=== PATIENT | male | born 1950 | race Caucasian/White ===

== ENCOUNTER 2017-12-13 11:00 | Inpatient (IN) | payer MEDICAID, MEDICARE ==
--- NOTE | 2017-12-13 11:12 | ED Physician Chart ---
ED Chief Complaint/HPI - Patient Information Date Seen:: 12/13/17 Time Seen:: 11:00 Chief Complaint:: AMS History of Present Illness:: onset x 2 days of AMS, ALOC, confusion, weakness, and dysphasia; no report of LOC, H/As, neck pain, C/P, SOB, Abd. Pain, A/N/V/D/c, fever, chills, or urinary s/s Historian:: Patient, Family Member Review:: Nurse's Note Reviewed ED Review of Systems - Review of Systems General/Constitutional: No fever, No chills, No weight loss, No weakness, No diaphoresis, No edema, No loss of appetite Skin: No skin lesions, No rash, No bruising Head: No headache, No light-headedness Eyes: No loss of vision, No pain, No diplopia ENT: No earache, No nasal drainage, No sore throat, No tinnitus Neck: No neck pain, No swelling, No thyromegaly, No stiffness, No mass noted Cardio Vascular: No chest pain, No palpitations, No PND, No orthopnea, No edema Pulmonary: No SOB, No cough, No sputum, No wheezing GI: No nausea, No vomiting, No diarrhea, No pain, No melena, No hematochezia, No constipation, No hematemesis G/U: No dysuria, No frequency, No hematuria, No nacturia Musculoskeletal: No bone or joint pain, No back pain, No muscle pain Endocrine: No polyuria, No polydipsia Psychiatric: No prior psych history, No depression, No anxiety, No suicidal ideation, No homicidal ideation, No auditory hallucination, No visual hallucination Hematopoietic: No bruising, No lymphadenopathy Allergic/Immuno: No urticaria, No angioedema Neurological: No syncope, Focal symptoms, Weakness, No paresthesia, No headache , No seizure, No dizziness, Confusion, No vertigo ED Past Medical History - Past Medical History Obtainable: Yes Past Medical History: HTN, DM, CVA/TIA, Dyslipidemia Family History: Diabetes Melitus, HTN Social History: Non Smoker, No Alcohol, No Drug Use, Surgical History: None Psychiatricy History: None Medication: Reviewed ED Physical Exam - Physical Examination General/Constitutional: Awake, Well-developed, well-nourished, Alert, No distress, GCS 15, Non-toxic appearing, Ambulatory Head: Atraumatic Eyes: Lids, conjuctiva normal, PERRL, EOMI Skin: Nl inspection, No rash, No skin lesions, No ecchymosis, Well hydrated, No lymphadenopathy ENMT: External ears, nose nl, TM canals nl, Nasal exam nl, Lips, teeth, gums nl , Oropharynx nl, Tonsils nl Neck: Nontender, Full ROM w/o pain, No JVD, No nuchal rigidity, No bruit, No mass, No stridor Respiratory: Nl effort/Exclusion, Clear to Auscultation, No Wheeze/Rhonchi/Rales Cardio Vascular: RRR, No murmur, gallop, rubs, NL S1 S2, Carotid/Femoral/Distal pulses equal bilaterally GI: No tenderness/rebounding/guarding, No organomegaly, No hernia, Normal BS's, Nondistended, No mass/bruits, No McBurney tenderness : No CVA tenderness Extremities: No tenderness or effusion, Full ROM, normal strength in all extremities, No edema, Normal digits & nails Neuro/Psych: Alert/oriented, DTR's symmetric, Normal sensory exam, Normal motor strength, Judgement/insight normal, Mood normal, Normal gait Other Neuro/Psych comments:: + Dysphasia; decreased motor and sensory functions of Right Facial, RUE, and RLE due to old CVA Misc: Normal back, No paraspinal tenderness ED Labs/Radiology/EKG Results - Lab Results Comments:: Na+: 133; K+: 3.2 - Radiology Results Comments:: NAD - EKG Interpretations EKG Time:: 11:47 Rate & Rhythm: 102; ST Comments:: non-specific st-t changes ED Septic Shock - . Is Septic Shock (SBP<90, OR Lactate>4 mmol\L) present?: No ED Reassessment (Disposition) - Reassessment Reassessment Condition:: Improved - Diagnosis Diagnosis:: Hyponatremia; Hypokalemia; AMS; ALOC; TIA; CVA - Aftercare/Follow up Instructions Aftercare/Follow-Up Instructions:: Counseled pt regarding lab results/diagnosis & need follow up, Refer to Discharge Instructions, Counseled pt & family regarding lab results/diagnosis & need follow up - Patient Disposition Discharge/Transfer:: Acute Care w/in this hosp Accepting Physician:: Dr. Charlie Time Called:: 1300 Time Responded:: 13:00 Admitted to:: Telemetry Spoke to:: Dr. Guerra Admitting Medical Physician:: Dr. Guerra Condition at Disposition:: Stable, Improved
[2017-12-13 11:23] LABS: % BASOPHILS 0.9 % (0.0-2.0); % EOSINOPHILS 0.9 % (0.0-5.0); % LYMPHOCYTES 32.6 % (20.0-50.0); % MONOCYTES 11.9 % (2.0-10.0); % NEUTROPHILS 53.7 % (40.0-80.0); BASOPHILE ABSOLUTE 0.1 Th/cumm (0-0.2); EOSINOPHILE ABSOLUTE 0.1 Th/cmm (0.1-0.4); HEMATOCRIT 47.9 % (41.0-60); LYMPHOCYTE ABSOLUTE 2.7 Th/cmm (1.5-3.0); MEAN CELL VOLUME 95.1 fl (80-99); MEAN CORPUSCULAR HEMOGLOBIN 31.8 pg (27.0-31.0); MEAN CORPUSCULAR HGB CONC 33.4 pg (28.0-36.0); MEAN PLATELET VOLUME 7.8 fl; NEUTROPHILE ABSOLUTE 4.4 Th/cmm (1.8-8.0); PLATELET COUNT 344 Th/cmm (150-400); RED BLOOD COUNT 5.04 Mil/cmm (3.80-5.80); RED CELL DISTRIBUTION WIDTH 12.6 % (11.5-20.0); WHITE BLOOD COUNT 8.3 Th/cmm (4.8-10.8)
[2017-12-13 11:36] LABS: PROTHROMBIN TIME (TEST) 10.4 SECONDS (9.5-11.5)
[2017-12-13 11:43] LABS: ALBUMIN 3.9 gm/dL (4.2-5.5); ALKALINE PHOSPHATASE 82 U/L (34-104); ANION GAP 8.5 (7.0-16.0); BILIRUBIN,TOTAL 0.6 mg/dL (0.3-1.0); BUN - UREA NITROGEN 8 mg/dL (7-25); CALCIUM SERUM 9.3 mg/dL (8.6-10.3); CARBON DIOXIDE 27.7 mEq/L (21.0-31.0); CHLORIDE 100 mEq/L (98-107); CHOLESTEROL 150 mg/dL (<200); CREATININE - SERUM 0.7 mg/dL (0.7-1.3); CREATININE KINASE 78 U/L (30-223); GFR AFRICAN-AMERICAN > 60.0 ml/min (>90); GFR NON AFRICAN-AMERICAN > 60.0 ml/min; GLUCOSE 215 mg/dL (70-105); HDL -HIGH DENSITY LIPOPROTEIN 44 mg/dL (23-92); POTASSIUM SERUM 3.2 mEq/L (3.5-5.1); SGOT 11 U/L (13-39); SGPT/ALT 11 U/L (7-52); SODIUM SERUM 133 mEq/L (136-145); TOTAL PROTEIN,SERUM 7.9 gm/dL (6.0-8.3); TRIGLYCERIDES 70 mg/dL (<150)
[2017-12-13] MEDS ORDERED: Potassium Chloride 20 mEq ER Tab PO ONE ×2 (12:26→12:34)
--- NOTE | 2017-12-13 13:25 | Diagnostic Imaging Report ---
Head CT without intravenous contrast Indication: Confusion Comparison: None Technique: Axial images were obtained from the vertex to the skull base without IV contrast. Coronal reconstructions were made. Total DLP: [id number], [id number] FINDINGS: Images of the brain obtained without contrast demonstrate no evidence of acute hemorrhage. Old left MCA territory infarct is seen with encephalomalacia left frontal and temporal lobes. There is mild ex vacuo dilatation left lateral ventricle. The basal cisterns are patent. No mass effect or midline shift. Atrophy is noted. No evidence of a skull fracture or focal soft tissue swelling. Atherosclerosis is noted. The visualized paranasal sinuses demonstrate mucosal thickening. IMPRESSION: No evidence of acute intracranial hemorrhage. 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 Atherosclerotic vascular disease.
--- NOTE | 2017-12-13 13:48 | Diagnostic Imaging Report ---
Portable chest x-ray History: Pain Allowing for portable technique the heart size is normal. No focal pulmonary parenchymal processes. No hilar or mediastinal abnormalities. Surgical clips noted in the left upper quadrant of the abdomen. Impression: No acute abnormalities.
[2017-12-14 06:59] LABS: % BASOPHILS 0.8 % (0.0-2.0); % EOSINOPHILS 1.6 % (0.0-5.0); % LYMPHOCYTES 27.5 % (20.0-50.0); % MONOCYTES 14.6 % (2.0-10.0); % NEUTROPHILS 55.5 % (40.0-80.0); BASOPHILE ABSOLUTE 0.1 Th/cumm (0-0.2); EOSINOPHILE ABSOLUTE 0.1 Th/cmm (0.1-0.4); HEMATOCRIT 44.6 % (41.0-60); HEMOGLOBIN 14.9 gm/dL (12-16); LYMPHOCYTE ABSOLUTE 2.1 Th/cmm (1.5-3.0); MEAN CELL VOLUME 93.5 fl (80-99); MEAN CORPUSCULAR HEMOGLOBIN 31.3 pg (27.0-31.0); MEAN CORPUSCULAR HGB CONC 33.4 pg (28.0-36.0); MEAN PLATELET VOLUME 8.4 fl; MONOCYTE ABSOLUTE 1.1 Th/cmm (0.3-1.0); NEUTROPHILE ABSOLUTE 4.4 Th/cmm (1.8-8.0); PLATELET COUNT 350 Th/cmm (150-400); RED BLOOD COUNT 4.77 Mil/cmm (3.80-5.80); RED CELL DISTRIBUTION WIDTH 12.8 % (11.5-20.0); WHITE BLOOD COUNT 7.8 Th/cmm (4.8-10.8)
[2017-12-14 07:11] LABS: ANION GAP 7.3 (7.0-16.0); BUN - UREA NITROGEN 8 mg/dL (7-25); CALCIUM SERUM 9.3 mg/dL (8.6-10.3); CARBON DIOXIDE 28.5 mEq/L (21.0-31.0); CHLORIDE 103 mEq/L (98-107); CREATININE - SERUM 0.7 mg/dL (0.7-1.3); GFR AFRICAN-AMERICAN > 60.0 ml/min (>90); GFR NON AFRICAN-AMERICAN > 60.0 ml/min; GLUCOSE 186 mg/dL (70-105); POTASSIUM SERUM 3.8 mEq/L (3.5-5.1); SODIUM SERUM 135 mEq/L (136-145)
[2017-12-15 06:01] LABS: % BASOPHILS 0.5 % (0.0-2.0); % EOSINOPHILS 2.2 % (0.0-5.0); % LYMPHOCYTES 37.8 % (20.0-50.0); % NEUTROPHILS 46.5 % (40.0-80.0); EOSINOPHILE ABSOLUTE 0.2 Th/cmm (0.1-0.4); HEMATOCRIT 46.5 % (41.0-60); HEMOGLOBIN 15.6 gm/dL (12-16); MEAN CELL VOLUME 93.2 fl (80-99); MEAN CORPUSCULAR HEMOGLOBIN 31.1 pg (27.0-31.0); MEAN CORPUSCULAR HGB CONC 33.4 pg (28.0-36.0); MEAN PLATELET VOLUME 7.9 fl; NEUTROPHILE ABSOLUTE 3.7 Th/cmm (1.8-8.0); PLATELET COUNT 311 Th/cmm (150-400); RED CELL DISTRIBUTION WIDTH 12.6 % (11.5-20.0); WHITE BLOOD COUNT 7.9 Th/cmm (4.8-10.8)
[2017-12-15 06:22] LABS: BUN - UREA NITROGEN 12 mg/dL (7-25); CALCIUM SERUM 9.5 mg/dL (8.6-10.3); CARBON DIOXIDE 28.1 mEq/L (21.0-31.0); CHLORIDE 100 mEq/L (98-107); CREATININE - SERUM 0.8 mg/dL (0.7-1.3); GFR AFRICAN-AMERICAN > 60.0 ml/min (>90); GFR NON AFRICAN-AMERICAN > 60.0 ml/min; GLUCOSE 172 mg/dL (70-105); POTASSIUM SERUM 4.1 mEq/L (3.5-5.1); SODIUM SERUM 134 mEq/L (136-145)
--- NOTE | 2017-12-16 12:36 | History and Physical ---
History of Present Illness - HPI Chief Complaint: altered mental status HPI: This is a 67 year old male who has a 2 day history of weakness and confusion. Vital Signs: Last Vital Signs Temp 98 F 12/16/17 03:45 Pulse 79 12/16/17 03:45 Resp 18 12/16/17 10:36 BP 132/74 12/16/17 03:45 Pulse Ox 95 12/16/17 03:45 Past Medical History Other History: HTN, DM, CVA/TIA, Dyslipidemia Family Medical History - Family Member Father History Unknown: Yes Ethnicity: Living Status: Still Living Hx Family Congestive Heart Failure: Yes Hx Family Hypertension: Yes Hx Family Stroke: Yes Hx Family Diabetes: Yes Social History Smoke: No Alcohol: None Drugs: None Lives: With Family - Medications Home Medications: Home Medication Medication Instructions Recorded Type NK [No Home Meds] 12/13/17 History - Allergies Allergies/Adverse Reactions: Allergies Allergy/AdvReac Type Severity Reaction Status Date / Time No Known Allergies Allergy Verified 12/13/17 11:15 Review of Systems - Review of Systems Constitutional: Report: Weakness Eyes: Report: No Significant ENT: Report: No Significant Respiratory: Report: No Significant Cardiovascular: Report: No Significant Gastrointestinal: Report: No Significant Genitourinary: Report: No Significant Musculoskeletal: Report: No Significant Skin: Report: No Significant Neurological: Report: Weakness Physical Exam - Physical Exam HEENT: Report: Ears Nose Throat within normal limits Neck: Report: Within normal limits Cardiovascular Systems: Report: +s1/s2 noted, Regular, Rate and Rhythm Respiratory: Report: Breath Sounds are within normal limits, Clear to Auscultation of lung mercado Abdomen: Report: Non-tender to palpation Back: Report: Inspection of back is within normal limits. Skin: Report: Color of skin is within normal limits Neuro/Psych: Report: Mood affect is within normal limits - Assessment Assessment: Current Active Problems Problem Status Onset FREQUENT FALLS AND UNABLE TO CARE FOR SE Acute HTN DM hx CVA/TIA Dyslipidemia - Plan Plan: pt eval fall precautions cbc/bmp in am continue current orders
--- NOTE | 2017-12-25 08:28 | Discharge Summary ---
DATE OF DISCHARGE: 12/16/2017 The patient went to [facility] that is the [facility] and the patient was admitted because of altered level of consciousness. A 67-year-old male patient, had 2 days history of weakness and falls and failure to thrive. The initial diagnoses are history of falls, unable to care for self, hypertension, diabetes, history of CVA, history of TIA and hyperlipidemia and the patient was evaluated for that. The patient had all the labs done, had a PT evaluation and the patient had neuro evaluation as well. The patient gradually improved and the patient was in stable condition on 12/16/2017, and the patient needed further skilled need because of his failure to thrive and severe weakness and unable to ambulate well and history of CVA and TIA and history of recurrent falls, hypertension, and diabetes. The patient was sent to [facility] where I will follow the patient. MEDICATIONS: See the reconciliation sheet. The patient needs to have further physical therapy and please refer to the dietary recommendation for diet and the prognosis is guarded. JOB# [id number]
== END 2017-12-16 17:55 | DRG 640 ==
LOC: ER 11:00 → MSI 15:02
PROVIDERS: ADMIT Internal Medicine; ATTEND Internal Medicine
DX: E87.1 Hypo-osmolality and hyponatremia (principal); G93.41 Metabolic encephalopathy; R13.10 Dysphagia, unspecified; E11.9 Type 2 diabetes mellitus without complications; E87.6 Hypokalemia; R41.82 Altered mental status, unspecified; I10 Essential (primary) hypertension; E78.5 Hyperlipidemia, unspecified; Z83.3 Family history of diabetes mellitus; Z86.73 Personal history of transient ischemic attack (TIA), and cerebral infarction without residual deficits; Z82.49 Family history of ischemic heart disease and other diseases of the circulatory system; Z82.3 Family history of stroke
CPT/HCPCS: 36415-UA; 70450-TC; 71045-TC; 80048-TC; 80053-TC; 80061-TC; 82550-TC; 83036-90; 83880-TC; 84484-TC; 85025-TC; 85610-TC; 93005; 94760; 97530; J7030; X3904